=== PATIENT | female | born 1975 | race Caucasian/White ===

== ENCOUNTER 2016-08-11 20:29 | Emergency (ER) | payer MEDICARE ==
[~2016-08-11 20:29] MED LIST: ADVAIR INH; AMBIEN CR12.5 MG PO; BENICAR20 PO; CARASPUDL PO; CELEBREX2 PO; CELEXA40 MG PO; CONSTULOSE PO; CORTEF20 MG PO; CORTEF5; COZ50 PO; COZAAR100 MG PO; DILAUDID8 MG PO; ESTRACE1 MG PO; FLEX PO; FORTAMET500 MG PO; IMITREX100 MG PO; JANUVIA100 MG PO; KDUR20 PO; KLONO2 PO; KLOR-CON M2020 MEQ PO; L40 PO; LEVSINTAB SL; LEXAPRO20 PO; LIOR10 PO; LYRICA50 PO; MAXALT10 MG PO; METAMUCIL CAN7 OZ PO; MICRONASE5 MG PO; MIRALAXPKT PO; MOVANTIK PO; NEUR300 PO; OPANA10 MG PO; P125 PO; PCET PO; PERCOCET1 TA4 PO; PR25 PO; PREM625 PO; PREM9 PO; PRILOSEC OTC20 MG PO; PRILOSEC40 MG PO; PROTONIX PO; REG5 PO; SAVELLA50 MG PO; SEROQUEL1C PO; SEROQUEL200 MG PO; SEROQUEL300 MG PO; TOPAMAX100 PO; TOPAMAX200 MG PO; TRILEP150 PO; VITD PO
[2016-08-11 22:10] LABS: BASOPHILS 0.4 %; BASOPHILS ABSOLUTE 0.05 10/3/uL (0.0-0.16); EOSINOPHILS 2.5 %; EOSINOPHILS ABSOLUTE 0.31 10/3/uL (0.0-0.53); ER CBC TAT 0 Hrs 07 Mins; HEMATOCRIT 40.6 % (36.0-48.0); IMMATURE GRANULOCYTES 0.4 %; IMMATURE GRANULOCYTES ABSOLUTE 0.05 10/3/uL (0.0-0.11); LYMPHOCYTES 32.4 %; MEAN CORPUSCULAR HEMOGLOB 29.7 pg (26.0-34.0); MEAN PLATELET VOLUME 9.7 fL (9.2-13.0); MONOCYTES 8.1 %; NEUTROPHILS 56.2 %; NEUTROPHILS ABSOLUTE 6.95 10/3/uL (2.02-8.40); PLATELET COUNT 358 10/3/uL (150-400); RBC DISTRIBUTION WIDTH 16.4 % (12.0-16.0); RED CELL COUNT 4.38 10/6/uL (4.0-5.6); WHITE BLOOD CELLS 12.4 10/3/uL (4.5-10.5)
[2016-08-11 22:12] LABS: MANUAL DIFF NO %; MEAN CORPUSCULAR VOLUME 92.7 fL (80-100)
[2016-08-11 22:22] LABS: ASCORBIC ACID (UR NOT ORDER) NEG (NEG); BILIRUBIN, URINE NEGATIVE (NEG); ER URINALYSIS TAT 0 Hrs 19 Mins; KETONE, URINE NEGATIVE (NEG); LEUKOCYTE ESTERASE(NOT OR NEG (NEG); NITRITE (URINE) NEG (NEG); WBC (NOT ORDERED) (RFLEX) 1 (0-5)
[2016-08-11 22:23] LABS: BUN (BLOOD UREA NITROGEN) 11 MG/DL (6-23); CALCIUM, SERUM 8.8 MG/DL (8.5-10.4); CHLORIDE, SERUM 110 MMOL/L (96-112); CO2 (CARBON DIOXIDE) 27 MMOL/L (24-34); GFR AFRICAN AMERICAN 80 ML/MIN (>=60); GFR NON AFRICAN AMERICAN 69 ML/MIN (>=60); POTASSIUM, SERUM 3.7 MMOL/L (3.5-5.3); SODIUM, SERUM 143 MMOL/L (135-148)
[2016-08-11 22:25] LABS: GLUCOSE, SERUM 119 MG/DL (60-99)
== END 2016-08-12 02:21 | disposition home or self-care (01) ==
LOC: ER 20:29
PROVIDERS: Emergency Medicine
DX: R30.0 Dysuria (principal); M54.5 Low back pain; J45.909 Unspecified asthma, uncomplicated; G47.30 Sleep apnea, unspecified; I10 Essential (primary) hypertension; K21.9 Gastro-esophageal reflux disease without esophagitis; F41.9 Anxiety disorder, unspecified; F32.9 Major depressive disorder, single episode, unspecified; E11.9 Type 2 diabetes mellitus without complications; M79.7 Fibromyalgia; Z87.442 Personal history of urinary calculi; Z90.710 Acquired absence of both cervix and uterus; Z90.49 Acquired absence of other specified parts of digestive tract; Z98.84 Bariatric surgery status; Z88.5 Allergy status to narcotic agent; Z88.6 Allergy status to analgesic agent; Z88.8 Allergy status to other drugs, medicaments and biological substances; Z79.84 Long term (current) use of oral hypoglycemic drugs; Z79.899 Other long term (current) drug therapy
CPT/HCPCS: 74000; 80048; 81001; 85025; 96372; 99284; J1170